=== PATIENT | female | born 1975 ===

== ENCOUNTER 2022-03-09 08:45 | Inpatient (IN) | payer OTHER ==
[~2022-03-09] VITALS: Ht 160 cm; Wt 63.5 kg
[2022-03-12] MEDS ORDERED: INTESTINEX680 M1 PO (08:24)
[2022-03-12] MEDS ORDERED: ULTRAM50 MG PO (08:24)
== END 2022-03-12 22:20 | disposition home or self-care (01) | DRG 343 ==
LOC: EDSTATUS 08:45 → ADM 08:45 → SURH 03-11 08:45 → O/R 03-11 10:00 → SURG 03-11 10:00 → SURH 03-11 14:45 → SURG 03-11 21:40
PROVIDERS: ADMIT Surgery; ATTEND Surgery
PROC: 0DTJ4ZZ Resection of Appendix, Percutaneous Endoscopic Approach (ICD-10-PCS; principal; 2022-03-11 14:45)
DX: D12.0 Benign neoplasm of cecum (principal); D12.1 Benign neoplasm of appendix; Z20.822 Contact with and (suspected) exposure to COVID-19